=== PATIENT | female | born 1980 | race Caucasian/White ===

== ENCOUNTER 2022-05-09 17:05 | Emergency (ER) | payer MEDICAID, SELFPAY ==
[2022-05-09 17:08] VITALS: BP 98/59; PULSE 79; RESP 16; TEMP 36.6; O2SAT 98; BMI 24.6
[2022-05-09 18:10] VITALS: BP 103/67; PULSE 80; RESP 17; TEMP 36.4; O2SAT 97
[2022-05-09] MEDS: Naproxen 500 MG Tablet PO (18:12)
[2022-05-09] MEDS: Clindamycin HCl 150 MG Capsule 450 MG PO (18:12)
--- NOTE | 2022-05-09 19:40 | EX.ED.DYSGE1 ---
HPI History of Present Illness Chief Complaint: Cellulitis Narrative Narrative: 41-year-old female IV drug abuser presenting from [facility] for evaluation of cellulitis. She states he last injected earlier today. She is currently at [facility] to help get detox. She has cellulitis on her right and left antecubital fossa. She also has swelling in the bilateral hands. She is not had any systemic signs or symptoms. She states she has no history of MRSA. PFSH PFS Home Medications clindamycin HCl 150 mg capsule 450 mg PO TID 10 days #90 caps 05/09/22 [Rx Last Taken Unknown] naproxen 500 mg tablet (Naprosyn) 500 mg PO BID PRN pain #30 tabs 05/09/22 [Rx Last Taken Unknown] Allergy/AdvReac Type Severity Reaction Status Date / Time No Known Allergies Allergy Verified 05/09/22 17:11 Social History Smoking Status: Current every day smoker tobacco type: cigarettes ROS ROS ED Constitutional Constitutional ED: Denies chills or fever(s) Eyes Eyes: Denies change in vision ENT ENT ED: Denies rhinorrhea or sore throat Cardiovascular Cardiovascular: Denies chest pain or palpitations Respiratory/Chest Respiratory/Chest: Denies cough or dyspnea Gastrointestinal Gastrointestinal: Denies abdominal pain or constipation Genitourinary Genitourinary ED: Denies dysuria or hematuria Musculoskeletal Musculoskeletal: Denies arthralgias or back pain Integumentary Reports rash Neurologic Neurologic: Denies headache(s) or paresthesias Psychiatric Psychiatric: Denies anxiety or depression EXAM Physical Exam Const Vital Signs: 05/09/22 17:08 05/09/22 18:10 Temperature 97.9 F 97.6 F L Temperature Source Temporal Temporal Pulse Rate 79 80 Respiratory Rate 16 17 Blood Pressure 98/59 L 103/67 Blood Pressure Mean 72 79 Pulse Ox 98 97 Oxygen Delivery Method Room Air Room Air Positive well nourished General Appearance ED: NAD HEENT Reports moist mucous membranes Eyes PERRL and EOMs intact bilaterally General Eye ED: Negative for pale conjunctiva or scleral icterus Resp normal respiratory effort Cardio regular rate and regular rhythm Extremity Extremity Narrative: Erythema and warmth to the bilateral antecubital fossa. There is no crepitance. No fluctuant masses. The bilateral hands are also mildly warm and there is increased redness here. There are multiple areas of injection sites in each area. No bony tenderness. Neuro oriented x3 and CN's II-XII intact bilaterally Skin Skin Narrative: As described above MDM MDM MDM Narrative Medical decision making narrative: Patient with cellulitis likely from injection of drugs. I do not feel any fluctuant masses or abscesses that need to be drained. She feels well otherwise. She wants to go back to [facility] for detox. Due to her history of IV drug abuse we will start her on clindamycin. First dose given in the ER. Her prescription was filled here so she can take it back to [facility]. Patient can return precautions. Wound care was discussed. Impression: 1. Cellulitis 2. History of IV drug abuse Lab Data Attestation: I reviewed the patient's lab results. Discharge Plan Triage Chief Complaint: Cellulitis ED Provider: Mohit Pryor Dx/Rx/DC Orders Instructions: ED Cellulitis Prescriptions: New clindamycin HCl 150 mg capsule 450 mg PO TID 10 Days Qty: 90 0RF naproxen [Naprosyn] 500 mg tablet 500 mg PO BID PRN (Reason: pain) Qty: 30 0RF Primary Care Provider: NOT,DEFINED Referrals: NOT,DEFINED [Primary Care Provider] - Disposition Disposition: Home, Self Care Discharge Date/Time: 05/09/22 18:28
== END 2022-05-09 18:28 | disposition home or self-care (01) ==
LOC: ED 18:28
PROVIDERS: Emergency Provider Student in an Organized Health Care Education/Training Program; Visit Provider Student in an Organized Health Care Education/Training Program
DX: L03.90 Cellulitis, unspecified (principal); F19.19 Other psychoactive substance abuse with unspecified psychoactive substance-induced disorder; F17.210 Nicotine dependence, cigarettes, uncomplicated
CPT/HCPCS: 99283

== ENCOUNTER 2022-06-02 13:22 | Emergency (ER) | payer MEDICAID, SELFPAY ==
[2022-06-02 13:23] VITALS: BP 99/73; PULSE 97; RESP 14; TEMP 36.6; O2SAT 99; BMI 24.0
--- NOTE | 2022-06-02 13:42 | EX.ED.VIS.PS ---
HPI <Dr. Ronald Chavez DO - Last Filed: 06/02/22 15:52> HPI - Psych History of Present Illness Chief Complaint: Mental Health Informant: patient and mental health staff Narrative Narrative: Patient here with [facility] staff, Mame, for evaluation of suicidal ideations with a potential plan. Patient history of anxiety depression, PTSD, DID, followed by counselor in [place]. She also follows [facility] for history of substance abuse. She has been at [facility] for the past 10 days for substance dependence. She injects cocaine. Last use prior to voluntary going to the facility. She has been using cocaine since 2018. Previously use heroin and opiates. She states had suicidal attempts multiple times up to 16 in the past however last time was 2019 reported overdose due to significant other passing away. She states she was hospitalized at that time. She was sober from cocaine for 3 years up till proximate month ago. She states she went into rehab for her family. However she is thinking about wanting to leave the facility so she can go back to using cocaine. She denies alcohol use. Denies any other recreational drugs at this time. Due to reporting suicidal thoughts with a plan stating she would take drugs until she would not wake up. She was brought here. However she states she would never do that secondary to not wanting her children to bury her. Reported that she is at facility at [facility] on a voluntary basis. Prior similar symptoms: Yes PFSH <Dr. Ronald Chavez DO - Last Filed: 06/02/22 15:52> [facility] Home Medications aripiprazole 15 mg tablet 1 tab PO DAILY 06/02/22 [History Last Taken Unknown] buspirone 15 mg tablet 1 tab PO TID 06/02/22 [History Last Taken Unknown] escitalopram oxalate 20 mg tablet 1 tab PO DAILY 06/02/22 [History Last Taken Unknown] gabapentin 300 mg capsule 1 cap PO TID 06/02/22 [History Last Taken Unknown] Allergy/AdvReac Type Severity Reaction Status Date / Time No Known Allergies Allergy Verified 06/02/22 13:23 Social History Smoking Status: Current every day smoker tobacco type: cigarettes ROS <Dr. Ronald Chavez DO - Last Filed: 06/02/22 15:52> ROS ED Constitutional Constitutional ED: Denies chills, fever(s) or sweats Eyes Eyes: Denies change in vision ENT ENT ED: Denies dysphagia or sore throat Cardiovascular Cardiovascular: Denies chest pain, leg edema, palpitations or racing heartbeat Respiratory/Chest Respiratory/Chest: Denies cough, dyspnea or dyspnea on exertion Gastrointestinal Gastrointestinal: Denies abdominal pain, diarrhea, nausea or vomiting Genitourinary Genitourinary ED: Denies dysuria, hematuria or urinary frequency Musculoskeletal Musculoskeletal: Denies back pain, extremity pain or neck pain Integumentary Denies rash or wounds Neurologic Neurologic: Denies headache(s), paresthesias or weakness Psychiatric Psychiatric: Reports suicidal ideation and suicidal thoughts EXAM <Dr. Ronald Chavez, DO - Last Filed: 06/02/22 15:52> Physical Exam Const Vital Signs: 06/02/22 13:23 06/02/22 15:57 Temperature 97.8 F Temperature Source Temporal Pulse Rate 97 Respiratory Rate 14 16 Blood Pressure 99/73 Blood Pressure Mean 81 Pulse Ox 99 Oxygen Delivery Method Room Air Room Air Positive well nourished and well developed General Appearance ED: well developed and NAD HEENT Reports moist mucous membranes normocephalic and atraumatic Eyes PERRL, EOMs intact bilaterally and conjunctivae normal General Eye ED: Yes normal appearance of both eyes Neck no lymphadenopathy and supple General: Negative for tenderness Chest Wall Chest: Negative for tenderness Resp normal respiratory effort and normal air movement Effort and Inspection: symmetric chest movement; Negative for respiratory distress Cardio regular rate, regular rhythm and no murmurs Peripheral Pulses: pulses 2+ throughout GI normal to inspection, nondistended, normoactive bowel sounds and non-tender Palpation: Negative for guarding or rebound tenderness present Back/Spine no CVA tenderness and no thoracic nor lumbar tenderness Extremity normal to inspection General Extremety ED: Negative for edema or tenderness General Extremity: Negative for edema Neuro oriented x3 and no sensory deficits noted Sensorium / Orientation: awake and alert Psych Psych Narrative: Cooperative open with her history. She admits to suicidal thoughts that are chronic. She admits to mentioning taking drugs until she wakes up however she states she would never do that. Denies homicidal ideations. Skin Skin Narrative: Dorsal hands with previous injection sites with indurations, there is no erythema drainage or streaking. <Dr. Richy Diaz, DO - Last Filed: 06/02/22 20:06> Physical Exam Const Vital Signs: 06/02/22 13:23 06/02/22 15:57 Temperature 97.8 F Temperature Source Temporal Pulse Rate 97 Respiratory Rate 14 16 Blood Pressure 99/73 Blood Pressure Mean 81 Pulse Ox 99 Oxygen Delivery Method Room Air Room Air MDM <Dr. Ronald Chavez, DO - Last Filed: 06/02/22 15:52> [facility] Narrative Medical decision making narrative: Patient with reported chronic suicidal ideations. She is taking all her medications confirmed by [facility] staff. She is currently cooperative and open with her history. Staff is concerned due to her mentioning a plan. We will have medical clearance labs obtained for which patient agrees to. We will have crisis evaluate to help with disposition. 1550: Labs and tox screen negative. Alcohol pending at this time. Patient is not clinically intoxicated. She is medically cleared. Awaiting crisis evaluation. Lab Data Attestation: I reviewed the patient's lab results. Labs: Laboratory Results - last 24 hr 06/02/22 06/02/22 06/02/22 13:47 14:45 14:45 WBC 8.1 RBC 4.18 L Hgb 12.9 Hct 39.1 MCV 93.5 MCH 30.9 MCHC 33.0 RDW Std Deviation 43.6 RDW Coeff of Bernardo 12.7 Plt Count 322 MPV 9.7 Immature Gran % (Auto) 3.200 H Neut % (Auto) 64.9 Lymph % (Auto) 21.8 [place] % (Auto) 5.4 Eos % (Auto) 3.5 Baso % (Auto) 1.2 H Absolute Neuts (auto) 5.2 Absolute Lymphs (auto) 1.76 Nucleated RBC % 0 Sodium 139 Potassium 4.3 Chloride 106 Carbon Dioxide 27.0 Anion Gap 6 BUN 12 Creatinine 0.74 Estim Creat Clear Calc 81.55 Est GFR (MDRD) Af Amer 110 Est GFR (MDRD) Non-Af 91 BUN/Creatinine Ratio 16.2 Glucose 98 Calcium 8.4 L Serum , Qual Urine Opiates Screen NEGATIVE Urine Methadone Screen NEGATIVE Ur Barbiturates Screen NEGATIVE Ur Phencyclidine Scrn NEGATIVE Ur Amphetamines Screen NEGATIVE MDMA (Ecstasy) Screen NEGATIVE U Benzodiazepines Scrn NEGATIVE Urine Cocaine Screen NEGATIVE U Cannabinoids Screen NEGATIVE Ur Drug Screen Comment Ethyl Alcohol 06/02/22 06/02/22 14:45 14:45 WBC RBC Hgb Hct MCV MCH MCHC RDW Std Deviation RDW Coeff of Bernardo Plt Count MPV Immature Gran % (Auto) Neut % (Auto) Lymph % (Auto) [place] % (Auto) Eos % (Auto) Baso % (Auto) Absolute Neuts (auto) Absolute Lymphs (auto) Nucleated RBC % Sodium Potassium Chloride Carbon Dioxide Anion Gap BUN Creatinine Estim Creat Clear Calc Est GFR (MDRD) Af Amer Est GFR (MDRD) Non-Af BUN/Creatinine Ratio Glucose Calcium Serum , Qual NEGATIVE Urine Opiates Screen Urine Methadone Screen Ur Barbiturates Screen Ur Phencyclidine Scrn Ur Amphetamines Screen MDMA (Ecstasy) Screen U Benzodiazepines Scrn Urine Cocaine Screen U Cannabinoids Screen Ur Drug Screen Comment Ethyl Alcohol < 3.0 <Dr. Richy Diaz, DO - Last Filed: 06/02/22 20:06> MDM MDM Narrative Medical decision making narrative: Patient with reported chronic suicidal ideations. She is taking all her medications confirmed by [facility] staff. She is currently cooperative and open with her history. Staff is concerned due to her mentioning a plan. We will have medical clearance labs obtained for which patient agrees to. We will have crisis evaluate to help with disposition. 1550: Labs and tox screen negative. Alcohol pending at this time. Patient is not clinically intoxicated. She is medically cleared. Awaiting crisis evaluation. Care of patient turned over to me awaiting evaluation by crisis. Crisis felt patient could be safety plan and discharged to home. Dr. Wilkerson believe this would be reasonable that decision was reached. At this time patient denies feeling suicidal. She is comfortable going home. Lab Data Labs: Laboratory Results - last 24 hr 06/02/22 06/02/22 06/02/22 13:47 14:45 14:45 WBC 8.1 RBC 4.18 L Hgb 12.9 Hct 39.1 MCV 93.5 MCH 30.9 MCHC 33.0 RDW Std Deviation 43.6 RDW Coeff of Bernardo 12.7 Plt Count 322 MPV 9.7 Immature Gran % (Auto) 3.200 H Neut % (Auto) 64.9 Lymph % (Auto) 21.8 [place] % (Auto) 5.4 Eos % (Auto) 3.5 Baso % (Auto) 1.2 H Absolute Neuts (auto) 5.2 Absolute Lymphs (auto) 1.76 Nucleated RBC % 0 Sodium 139 Potassium 4.3 Chloride 106 Carbon Dioxide 27.0 Anion Gap 6 BUN 12 Creatinine 0.74 Estim Creat Clear Calc 81.55 Est GFR (MDRD) Af Amer 110 Est GFR (MDRD) Non-Af 91 BUN/Creatinine Ratio 16.2 Glucose 98 Calcium 8.4 L Serum , Qual Urine Opiates Screen NEGATIVE Urine Methadone Screen NEGATIVE Ur Barbiturates Screen NEGATIVE Ur Phencyclidine Scrn NEGATIVE Ur Amphetamines Screen NEGATIVE MDMA (Ecstasy) Screen NEGATIVE U Benzodiazepines Scrn NEGATIVE Urine Cocaine Screen NEGATIVE U Cannabinoids Screen NEGATIVE Ur Drug Screen Comment Ethyl Alcohol 06/02/22 06/02/22 14:45 14:45 WBC RBC Hgb Hct MCV MCH MCHC RDW Std Deviation RDW Coeff of Bernardo Plt Count MPV Immature Gran % (Auto) Neut % (Auto) Lymph % (Auto) [place] % (Auto) Eos % (Auto) Baso % (Auto) Absolute Neuts (auto) Absolute Lymphs (auto) Nucleated RBC % Sodium Potassium Chloride Carbon Dioxide Anion Gap BUN Creatinine Estim Creat Clear Calc Est GFR (MDRD) Af Amer Est GFR (MDRD) Non-Af BUN/Creatinine Ratio Glucose Calcium Serum , Qual NEGATIVE Urine Opiates Screen Urine Methadone Screen Ur Barbiturates Screen Ur Phencyclidine Scrn Ur Amphetamines Screen MDMA (Ecstasy) Screen U Benzodiazepines Scrn Urine Cocaine Screen U Cannabinoids Screen Ur Drug Screen Comment Ethyl Alcohol < 3.0 Discharge Plan Triage Chief Complaint: Mental Health ED Provider: Ronald Chavez Dx/Rx/DC Orders Clinical Impression: Suicidal ideation, History of depression, Hx of substance abuse Instructions: ED Depression Prescriptions: No Action gabapentin 300 mg capsule 1 cap PO TID buspirone 15 mg tablet 1 tab PO TID escitalopram oxalate 20 mg tablet 1 tab PO DAILY aripiprazole 15 mg tablet 1 tab PO DAILY Primary Care Provider: Care Physician,No Primary Referrals: Care Physician,No Primary [Primary Care Provider] - Activity Restrictions/Additional Instructions: Follow-up as instructed by crisis. Disposition Disposition: Home, Self Care
[2022-06-02 14:16] LABS: Amphetamine Urine VISTA NEGATIVE (<1000 ng/mL); Barbiturate Urine VISTA NEGATIVE (< 200 ng/mL); Benzodiazepine Urine VISTA NEGATIVE (< 200 ng/mL); Cocaine Urine VISTA NEGATIVE (< 300 ng/mL); Ecstacy Urine VISTA NEGATIVE (< 500 ng/mL); Methadone Urine VISTA NEGATIVE (< 300 ng/mL); PCP Urine VISTA NEGATIVE (< 25 ng/mL); THC Urine VISTA NEGATIVE (< 50 ng/mL); Vista UDS pH Range 7
[2022-06-02 14:51] LABS: Absolute Lymphocyte Count 1.76 X10^3/uL (0.83-4.51); Absolute Neutrophil Count 5.2 X10^3/uL (2.0-7.7); Basophil% 1.2 % (0-1); Eosinophil# 0.28 X10^3/uL; Eosinophils% 3.5 % (0-5); Hematocrit 39.1 % (37-47); Hemoglobin 12.9 g/dL (12.0-15.0); Lymphocyte # 1.76 X10^3/ul (0.83-4.51); Lymphocyte % 21.8 % (19-41); Mean Corpuscular Hgb 30.9 pg (27.0-32.0); Mean Corpuscular Volume 93.5 fL (81-99); Mean Platelet Vol. 9.7 fl (6.2-12.0); Monocyte# 0.44 X10^3/uL; Monocyte% 5.4 % (0-10); NRBC Flagged by Analyzer 0 % (0-5); Neutrophil # 5.24 X10^3/uL (2.7-7.7); Neutrophil % 64.9 % (47-70); Platelet Count 322 K/mm3 (150-450); RBC Distribution Width CV 12.7 % (11.6-14.6); RBC Distribution Width SD 43.6 fl (35.1-43.9); Red Blood Count 4.18 M/mm3 (4.2-5.4); White Blood Count 8.1 K/mm3 (4.4-11.0)
[2022-06-02 15:04] LABS: Anion Gap 6 (5-15); BUN 12 mg/dL (7-18); BUN/Creat Ratio 16.2 RATIO (10-20); Calcium,Total 8.4 mg/dL (8.5-10.1); Chloride 106 mmol/L (98-107); Creatinine, Serum 0.74 mg/dL (0.55-1.02); EST Glomerular Filtration Rate 91 mL/min (>60); Est Glom Filt Rate - Afr Amer 110 mL/min (>60); Estimated Creatinine Clearance 81.55 ml/min; Glucose 98 mg/dL (74-106); Potassium 4.3 mmol/L (3.5-5.1); Sodium Level 139 mmol/L (136-145)
[2022-06-02 15:20] LABS: Internal QC Validated? YES +Cl - CLEAR BKGD; Pregnancy, Serum, hCG Quali. NEGATIVE Negative
[2022-06-02 15:57] VITALS: RESP 16
[2022-06-02 16:10] LABS: Alcohol, Blood (Medical)-Serum < 3.0 mg/dL
--- NOTE | 2022-06-02 17:37 | NURSING ---
PAPERWORK FAXED TO [facility]IS[facility] FOR THE SECOND TIME
== END 2022-06-02 20:09 | disposition home or self-care (01) ==
PROVIDERS: Emergency Provider Emergency Medicine; Visit Provider Emergency Medicine
DX: R45.851 Suicidal ideations (principal); F14.10 Cocaine abuse, uncomplicated; F17.210 Nicotine dependence, cigarettes, uncomplicated; F32.A Depression, unspecified
CPT/HCPCS: 36415; 80048; 80307; 82077; 84703; 85025; 99284; A4216